=== PATIENT | female | born 1945 | race Caucasian/White ===

== ENCOUNTER → 2017-05-27 | Outpatient (CLI) | payer OTHER, BC ==
[~2017-05-27] MED LIST: NS 100 ML IV 100 ML IV ONE
--- NOTE | 2017-05-27 12:44 | CT ---
HISTORY: Dizziness, altered mental status, and confusion x1 month. Study: CT brain with/without contrast Comparison: None available. Technique: Multiple axial images of the brain were obtained from the skull base to the vertex with/without admin istration of IV contrast. Dose reduction techniques including Automated Exposure Control (AEC) and a djustment of mA and kV were utilized. Findings: Age-related cortical atrophy and chronic small vessel ischemic changes. No acute intraparenchymal hem orrhage or mass can be identified. No extra-axial fluid collections are seen. No alteration in the attenuation of the brain parenchyma can be identified to suggest acute or subacute ischemic change. The ventricular system is symmetric and nondilated. The extracranial structures are grossly unremark able. No areas of abnormal contrast enhancement. The visualized vascular structures appear normal. IMPRESSION: No obvious acute intracranial pathology. If clinically concerned for acute ischemia/infar ction, MRI brain is more sensitive. Reported By:
--- NOTE | 2017-05-27 15:13 | VAS ---
HISTORY: Dizziness, near-syncope Study: Carotid ultrasound Comparison: None Technique: Multiple berumen scale and color flow Doppler images of the right and left carotid arterial s ystem were obtained. The vertebral arterial system was evaluated as well. Findings: Plaque is noted within the left carotid bulb. The peak systolic velocity of the right ICA is 70 cm/se c. The peak systolic velocity of the left ICA is 69 cm/sec. The ICA/CCA ratio on the right is 1.5. Th e ICA/CCA ratio on the left is 1.0. Bilateral antegrade vertebral flow was noted. A hypoechoic nodule or cyst is noted within the visualized right lobe of the thyroid. IMPRESSION: No hemodynamically significant stenosis is appreciated. Right-sided thyroid nodule or cyst which may be further evaluated with dedicated thyroid ultrasound Reported By:
== END ==
LOC: RAD 09:39
PROVIDERS: ATTEND Nurse Practitioner Family
DX: R42 Dizziness and giddiness (principal)
CPT/HCPCS: 70470; 93880; A4222

== ENCOUNTER → 2017-06-08 | Outpatient (CLI) | payer OTHER, BC ==
--- NOTE | 2017-06-08 14:15 | MRI ---
STUDY: MRI OF THE BRAIN WITHOUT GADOLINIUM HISTORY: Dizziness. Loss of appetite. Technique: Multiplanar multi-sequence MRI of the brain was obtained utilizing standard departmental p rotocol. Sagittal and axial T1, axial T2, FLAIR, diffusion (DWI/ADC)and GRE images through the brain were performed. Comparison: Head CT from May 27, 2017. Findings: The sulci, cisterns and ventricles are prominent consistent with diffuse volume loss. There are confl uent and scattered foci of T2 prolongation in the periventricular and subcortical white matter of bot h hemispheres. This is a nonspecific finding which likely represents microangiopathic change in a pat ient of this age. There is no evidence of acute territorial infarction, hemorrhage, mass, mass effect, or midline shift . There are no abnormal intra-axial or extra-axial fluid collections. There is a T1 hypointense and T 2 hyperintense focus in the left parietal bone that measures approximately 8.7 (AP) x 6.8 (TR) x 6.1 (SI) mm. The major intracranial vascular flow voids appear intact. The right vertebral artery appears dominant . IMPRESSION: 1. No evidence of acute intracranial abnormality. 2. Nonspecific white matter change and volume loss. 3. T1 hypointense and T2 hyperintense focus within the left parietal bone. Imaging characteristics r aise some concern for the possibility of edema within this lesion. A neoplastic process such as metas tasis or myeloma cannot be completely excluded. Clinical correlation is recommended. Would consider f urther evaluation with contrast-enhanced MRI as clinically warranted. Reported By:
== END ==
LOC: RAD 12:53
PROVIDERS: ATTEND Nurse Practitioner Family
DX: G31.84 Mild cognitive impairment of uncertain or unknown etiology (principal); R42 Dizziness and giddiness
CPT/HCPCS: 70551

== ENCOUNTER → 2017-06-12 | Outpatient (CLI) | payer OTHER, BC ==
--- NOTE | 2017-06-15 13:45 | US ---
ULTRASOUND OF THE THYROID CLINICAL INDICATION: Thyroid nodule COMPARISON: Carotid ultrasound 05/27/2017 PROCEDURE: Grayscale and color images of the thyroid was obtained. Findings: Isthmus: Isthmus measures 7 mm. Right thyroid: Right thyroid lobe measures 4.6 x 1.7 x 2.0 cm. Isoechoic nodule measuring 8 mm. Left thyroid: Left thyroid lobe measures 4.7 x 1.9 x 1.6 cm. Isoechoic nodule measuring 8 mm maximall y. IMPRESSION: 1. Bilateral isoechoic nodules which do not meet criteria for FNA biopsy. [email or web address] Reported By:
== END ==
LOC: RAD 12:48
PROVIDERS: ATTEND Nurse Practitioner Family
DX: E04.1 Nontoxic single thyroid nodule (principal); G31.84 Mild cognitive impairment of uncertain or unknown etiology
CPT/HCPCS: 76536; 95819